=== PATIENT | male | born 1980 | race Hispanic/Latino ===

== ENCOUNTER 2021-10-04 21:00 | Emergency (ER) | payer OTHER ==
[~2021-10-04] VITALS: Ht 177.8 cm; Wt 78.8 kg
[~2021-10-04 21:00] MED LIST: IBUPROFEN800 MG PO; PENICILLIN V P500 MG PO; TRAMADOL HCL50 MG PO
[2021-10-04] MEDS ORDERED: BACTRIM DS TAB1 EACH PO (22:14)
== END 2021-10-04 22:36 | disposition home or self-care (01) ==
LOC: ED 21:00
DX: L03.317 Cellulitis of buttock (principal); L03.314 Cellulitis of groin; E11.9 Type 2 diabetes mellitus without complications
CPT/HCPCS: 99283; A9270